=== PATIENT | male | born 1950 | race Caucasian/White ===

== ENCOUNTER → 2024-05-01 | Day surgery (SDC) | payer MEDICARE, OTHER ==
[~2024-05-01] MED LIST: Propofol 200 MG/20 ML SDV IV ONE; Sodium Chloride 0.9% 10 ML Syringe FLUSH PRN
[2024-05-01 09:48] VITALS: BP 114/75; PULSE 82
[2024-05-01] MEDS: Lactated Ringers 1,000 ML IV SCH (10:25)
[2024-05-01] MEDS: Simethicone Drops 40 MG/0.6 ML 30 ML Bottle ONE (11:28)
== END ==
LOC: FB.SDS 09:03
PROVIDERS: ATTEND Surgery
DX: Z12.11 Encounter for screening for malignant neoplasm of colon (principal); K57.30 Diverticulosis of large intestine without perforation or abscess without bleeding; I48.20 Chronic atrial fibrillation, unspecified; K42.0 Umbilical hernia with obstruction, without gangrene; J43.9 Emphysema, unspecified; K21.9 Gastro-esophageal reflux disease without esophagitis; F32.A Depression, unspecified; Z87.891 Personal history of nicotine dependence; Z79.01 Long term (current) use of anticoagulants; Z79.899 Other long term (current) drug therapy
CPT/HCPCS: 00812; 99100; A9270-GY; J2704; J7120